=== PATIENT | male | born 1955 | race African-American/Black ===

== ENCOUNTER 2021-12-13 08:33 | Inpatient (IN) | payer OTHER ==
[2021-12-13] MEDS ORDERED: ACETAMINOPHEN 1000 MG/100 ML BAG IVPB ONE (09:09)
[2021-12-13] MEDS ORDERED: SODIUM CHLORIDE 0.9% 500 ML INFUS.BAG IV ONE (09:09)
[2021-12-13] MEDS ORDERED: ONDANSETRON 4 MG/2 ML VIAL IVPUSH ONE ×2 (09:09→12:14)
[2021-12-13] MEDS ORDERED: PANTOPRAZOLE SODIUM 40 MG VIAL IVPUSH ONE (09:15)
[2021-12-13] MEDS ORDERED: ACETAMINOPHEN INJECTION 100 ML IVPB ONE (09:18)
[2021-12-13] MEDS ORDERED: ONDANSETRON 4 MG/2 ML VIAL ONE ×3 (09:19→19:28)
[2021-12-13] MEDS ORDERED: PANTOPRAZOLE SODIUM 40 MG VIAL ONE (09:19)
[2021-12-13 09:44] LABS: BASO % 0.4 % (0-2.0); EOS % 0.5 % (0-4.5); HEMOGLOBIN 11.3 GM/dL (11.7-16.9); LYMPH % 15.9 % (8-40); MCH 32.7 pg (25.7-33.7); MCHC 34.1 g/dl (32.0-35.9); MEAN CELL VOLUME 95.8 fl (80-96); MEAN PLT VOLUME 8.7 fl (7.5-11.1); MONO % 13.5 % (3.8-10.2); NEUT % 69.7 % (42.8-82.8); PLATELET COUNT 96 10^3/uL (134-434); RBC 3.45 M/mm3 (4.00-5.60); RDW 17.6 % (11.9-15.9); WHITE BLOOD COUNT 4.6 K/mm3 (4.0-10.0)
[2021-12-13 09:53] LABS: EPI CELLS 2 /uL (0-25.1); HYALINE CASTS 0 /uL (0-3.1); URINE APPEARANCE CLEAR; URINE BACTERIA 4 /uL (0-1359); URINE BILIRUBIN NEGATIVE (NEGATIVE); URINE COLOR YELLOW; URINE GLUCOSE (UA) NEGATIVE (NEGATIVE); URINE KETONE NEGATIVE (NEGATIVE); URINE LEUK ESTERASE NEGATIVE (NEGATIVE); URINE NITRITE NEGATIVE (NEGATIVE); URINE PROTEIN NEGATIVE (NEGATIVE); URINE RBC 104 /uL (0-23.9); URINE WBC 1 /uL (0-25.8)
[2021-12-13 09:55] LABS: VENOUS O2 SATURATION 67.1 % (70-80); VENOUS PCO2 46.4 mmHg (38-52); VENOUS PH 7.348 (7.310-7.410)
[2021-12-13 10:23] LABS: ALBUMIN 1.5 g/dl (3.4-5.0); MAGNESIUM 1.9 mg/dL (1.8-2.4)
[2021-12-13 10:24] LABS: BLOOD UREA NITROGEN 9.5 mg/dL (7-18)
[2021-12-13 10:26] LABS: CREATININE 1.1 mg/dL (0.55-1.3)
[2021-12-13 10:28] LABS: BILIRUBIN,TOTAL 1.3 mg/dL (0.2-1); TOT PROT 9.4 g/dl (6.4-8.2)
[2021-12-13 10:31] LABS: N-TERMINAL BNP 244.4 pg/ml (5-125)
[2021-12-13 11:20] LABS: INR 1.74 (0.83-1.09); PROTHROMBIN TIME (PATIENT) 20.1 SEC (9.7-13.0)
[2021-12-13] MEDS ORDERED: CEFTRIAXONE 1,000 MG in DEXTROSE 5%-WATER - 50 ML IVPB ONE (11:52)
[2021-12-13] MEDS ORDERED: CEFTRIAXONE 1 GM/50 ML BAG ONE (12:04)
[2021-12-13] MEDS ORDERED: amLODIPine BESYLATE 10 MG TABLET (FP) ONE (13:50)
[2021-12-13] MEDS: amLODIPine BESYLATE 10 MG TABLET (FP) PO SCH (13:53)
[2021-12-13] MEDS: SODIUM CHLORIDE 1,000 ML IV SCH (14:13)
[2021-12-13] MEDS ORDERED: morphine SULFATE 4 MG/ML VIAL IVPUSH ONE (17:02)
[2021-12-13] MEDS ORDERED: morphine SULFATE 4 MG/ML VIAL ONE (17:07)
[2021-12-13] MEDS: ONDANSETRON 4 MG/2 ML VIAL IVPUSH PRN (19:33)
[2021-12-14 05:23] VITALS: BMI 22.6
[2021-12-14] MEDS ORDERED: DEXTROSE 5%-WATER - 50 ML IVPB ONE (09:02)
[2021-12-14] MEDS ORDERED: cefTRIAXone SODIUM 1 GM VIAL ONE (09:02)
[2021-12-14] MEDS: amLODIPine BESYLATE 10 MG TABLET (FP) PO SCH (09:06)
[2021-12-14] MEDS: CEFTRIAXONE 1 GM in DEXTROSE 5%-WATER - 50 ML IVPB SCH (09:06)
[2021-12-14] MEDS: ONDANSETRON 4 MG/2 ML VIAL IVPUSH PRN (09:43)
[2021-12-14 11:32] LABS: BASO % 0.9 % (0-2.0); EOS % 0.5 % (0-4.5); HEMOGLOBIN 12.2 GM/dL (11.7-16.9); LYMPH % 17.3 % (8-40); MCH 32.5 pg (25.7-33.7); MEAN CELL VOLUME 95.7 fl (80-96); MEAN PLT VOLUME 9.8 fl (7.5-11.1); MONO % 8.4 % (3.8-10.2); NEUT % 72.9 % (42.8-82.8); PLATELET COUNT 112 10^3/uL (134-434); RBC 3.76 M/mm3 (4.00-5.60); RDW 17.4 % (11.9-15.9); WHITE BLOOD COUNT 5.6 K/mm3 (4.0-10.0)
[2021-12-14] MEDS ORDERED: oxyCODONE HCL 5 MG TABLET PO PRN (11:49)
[2021-12-14 12:02] LABS: MAGNESIUM 1.9 mg/dL (1.8-2.4)
[2021-12-14 12:06] LABS: PHOSPHOROUS 3.1 mg/dL (2.5-4.9)
[2021-12-14] MEDS: oxyCODONE HCL 5 MG TABLET PO PRN ×2 (12:13→23:20)
[2021-12-14] MEDS: SODIUM CHLORIDE 1,000 ML IV SCH (14:05)
[2021-12-14] MEDS: morphine SULFATE 4 MG/ML VIAL IVPUSH PRN ×2 (16:30→20:29)
[2021-12-15] MEDS: morphine SULFATE 4 MG/ML VIAL IVPUSH PRN ×6 (01:18→21:12)
[2021-12-15] MEDS ORDERED: cefTRIAXone SODIUM 1 GM VIAL ONE (08:43)
[2021-12-15] MEDS ORDERED: DEXTROSE 5%-WATER - 50 ML IVPB ONE (08:44)
[2021-12-15 08:49] LABS: BASO % 0.3 % (0-2.0); EOS % 1.1 % (0-4.5); HEMATOCRIT 33.1 % (35.4-49); HEMOGLOBIN 11.4 GM/dL (11.7-16.9); MCH 33.1 pg (25.7-33.7); MCHC 34.6 g/dl (32.0-35.9); MEAN CELL VOLUME 95.5 fl (80-96); MEAN PLT VOLUME 8.8 fl (7.5-11.1); MONO % 13.2 % (3.8-10.2); NEUT % 65.4 % (42.8-82.8); PLATELET COUNT 113 10^3/uL (134-434); RBC 3.46 M/mm3 (4.00-5.60); RDW 17.3 % (11.9-15.9); WHITE BLOOD COUNT 6.1 K/mm3 (4.0-10.0)
[2021-12-15] MEDS: ENOXAPARIN NA (PORCINE) 40 MG/0.4 ML DISP.SYRIN SQ SCH (09:02)
[2021-12-15] MEDS: amLODIPine BESYLATE 10 MG TABLET (FP) PO SCH (09:02)
[2021-12-15] MEDS: CEFTRIAXONE 1 GM in DEXTROSE 5%-WATER - 50 ML IVPB SCH (09:02)
[2021-12-15 09:33] LABS: BLOOD UREA NITROGEN 13.7 mg/dL (7-18); CALCIUM 7.7 mg/dL (8.5-10.1); MAGNESIUM 1.9 mg/dL (1.8-2.4)
[2021-12-15 09:36] LABS: CREATININE 0.9 mg/dL (0.55-1.3)
[2021-12-15 09:37] LABS: PHOSPHOROUS 2.4 mg/dL (2.5-4.9)
[2021-12-15] MEDS: SODIUM CHLORIDE 1,000 ML IV SCH (13:15)
[2021-12-15 18:07] LABS: FREE KAPPA,SERUM 184.6 mg/L (3.3-19.4)
[2021-12-16] MEDS: morphine SULFATE 4 MG/ML VIAL IVPUSH PRN ×6 (01:19→22:20)
[2021-12-16] MEDS ORDERED: cefTRIAXone SODIUM 1 GM VIAL ONE (09:16)
[2021-12-16] MEDS: ENOXAPARIN NA (PORCINE) 40 MG/0.4 ML DISP.SYRIN SQ SCH (09:24)
[2021-12-16] MEDS: amLODIPine BESYLATE 10 MG TABLET (FP) PO SCH (09:26)
[2021-12-16] MEDS: CEFTRIAXONE 1 GM in DEXTROSE 5%-WATER - 50 ML IVPB SCH (09:27)
[2021-12-16] MEDS: SODIUM CHLORIDE 1,000 ML IV SCH ×2 (09:28→14:46)
[2021-12-16] MEDS ORDERED: ACETAMINOPHEN 325 MG TABLET (FP) PO PRN (13:32)
[2021-12-17] MEDS: SODIUM CHLORIDE 1,000 ML IV SCH ×2 (01:30→14:02)
[2021-12-17] MEDS: morphine SULFATE 4 MG/ML VIAL IVPUSH PRN ×5 (05:10→22:01)
[2021-12-17] MEDS ORDERED: DEXTROSE 5%-WATER - 50 ML IVPB ONE (09:15)
[2021-12-17] MEDS ORDERED: cefTRIAXone SODIUM 1 GM VIAL ONE (09:15)
[2021-12-17] MEDS: CEFTRIAXONE 1 GM in DEXTROSE 5%-WATER - 50 ML IVPB SCH (09:25)
[2021-12-17] MEDS: ENOXAPARIN NA (PORCINE) 40 MG/0.4 ML DISP.SYRIN SQ SCH (09:29)
[2021-12-17] MEDS: amLODIPine BESYLATE 10 MG TABLET (FP) PO SCH (09:53)
[2021-12-17 11:03] LABS: MCH 32.5 pg (25.7-33.7); MCHC 33.4 g/dl (32.0-35.9); MEAN CELL VOLUME 97.3 fl (80-96); MEAN PLT VOLUME 9.1 fl (7.5-11.1); PLATELET COUNT 129 10^3/uL (134-434); RDW 17.6 % (11.9-15.9)
[2021-12-17 11:06] LABS: WHITE BLOOD COUNT 6.8 K/mm3 (4.0-10.0)
[2021-12-17 11:29] LABS: BLOOD UREA NITROGEN 13.9 mg/dL (7-18); CALCIUM 7.7 mg/dL (8.5-10.1)
[2021-12-17 11:30] LABS: ALBUMIN 1.2 g/dl (3.4-5.0); MAGNESIUM 1.9 mg/dL (1.8-2.4)
[2021-12-17 11:32] LABS: BILIRUBIN,DIRECT 0.5 mg/dL (0.0-0.2); CREATININE 1.1 mg/dL (0.55-1.3)
[2021-12-17 11:33] LABS: PHOSPHOROUS 1.6 mg/dL (2.5-4.9)
[2021-12-17 11:34] LABS: BILIRUBIN,TOTAL 0.9 mg/dL (0.2-1); TOT PROT 8.1 g/dl (6.4-8.2)
[2021-12-17 12:11] LABS: ANISOCYTOSIS 1+; MACROCYTOSIS 0; PLATELET ESTIMATE DECREASED
[2021-12-17] MEDS: oxyCODONE HCL 5 MG TABLET PO PRN (15:59)
[2021-12-17] MEDS: NAPH,MB-DB/K PH,MBDB POWDER PACKET PO SCH (17:02)
[2021-12-18] MEDS: SODIUM CHLORIDE 1,000 ML IV SCH (01:41)
[2021-12-18] MEDS: morphine SULFATE 4 MG/ML VIAL IVPUSH PRN ×4 (03:07→23:06)
[2021-12-18] MEDS ORDERED: DEXTROSE 5%-WATER - 50 ML IVPB ONE (09:21)
[2021-12-18] MEDS ORDERED: cefTRIAXone SODIUM 1 GM VIAL ONE (09:21)
[2021-12-18] MEDS: NAPH,MB-DB/K PH,MBDB POWDER PACKET PO SCH (09:33)
[2021-12-18] MEDS: CEFTRIAXONE 1 GM in DEXTROSE 5%-WATER - 50 ML IVPB SCH (09:33)
[2021-12-18] MEDS: ENOXAPARIN NA (PORCINE) 40 MG/0.4 ML DISP.SYRIN SQ SCH (09:33)
[2021-12-18] MEDS: amLODIPine BESYLATE 10 MG TABLET (FP) PO SCH (09:33)
[2021-12-18] MEDS ORDERED: SPIRONOLACTONE 25 MG TABLET PO SCH (11:30)
[2021-12-18] MEDS: oxyCODONE HCL 5 MG TABLET PO PRN (17:36)
[2021-12-19] MEDS ORDERED: DEXTROSE 5%-WATER - 50 ML IVPB ONE (09:24)
[2021-12-19] MEDS ORDERED: cefTRIAXone SODIUM 1 GM VIAL ONE (09:24)
[2021-12-19] MEDS: NAPH,MB-DB/K PH,MBDB POWDER PACKET PO SCH (09:32)
[2021-12-19] MEDS: amLODIPine BESYLATE 10 MG TABLET (FP) PO SCH (09:32)
[2021-12-19] MEDS: ENOXAPARIN NA (PORCINE) 40 MG/0.4 ML DISP.SYRIN SQ SCH (09:33)
[2021-12-19] MEDS: CEFTRIAXONE 1 GM in DEXTROSE 5%-WATER - 50 ML IVPB SCH (09:33)
[2021-12-19] MEDS: morphine SULFATE 4 MG/ML VIAL IVPUSH PRN ×4 (10:03→22:21)
[2021-12-20] MEDS: morphine SULFATE 4 MG/ML VIAL IVPUSH PRN ×4 (03:36→22:18)
[2021-12-20] MEDS ORDERED: DEXTROSE 5%-WATER - 50 ML IVPB ONE (09:42)
[2021-12-20] MEDS ORDERED: cefTRIAXone SODIUM 1 GM VIAL ONE (09:42)
[2021-12-20] MEDS: NAPH,MB-DB/K PH,MBDB POWDER PACKET PO SCH (10:02)
[2021-12-20] MEDS: CEFTRIAXONE 1 GM in DEXTROSE 5%-WATER - 50 ML IVPB SCH (10:02)
[2021-12-20] MEDS: amLODIPine BESYLATE 10 MG TABLET (FP) PO SCH (10:02)
[2021-12-20 13:34] LABS: BASO % 0.9 % (0-2.0); EOS % 5.2 % (0-4.5); HEMATOCRIT 34.4 % (35.4-49); HEMOGLOBIN 11.4 GM/dL (11.7-16.9); LYMPH % 25.5 % (8-40); MCH 32.7 pg (25.7-33.7); MCHC 33.2 g/dl (32.0-35.9); MEAN CELL VOLUME 98.5 fl (80-96); MEAN PLT VOLUME 9.5 fl (7.5-11.1); MONO % 14.3 % (3.8-10.2); NEUT % 54.1 % (42.8-82.8); PLATELET COUNT 114 10^3/uL (134-434); RBC 3.49 M/mm3 (4.00-5.60); RDW 18.3 % (11.9-15.9); WHITE BLOOD COUNT 5.1 K/mm3 (4.0-10.0)
[2021-12-20 13:51] LABS: ALBUMIN 1.5 g/dl (3.4-5.0)
[2021-12-20 13:54] LABS: BILIRUBIN,DIRECT 0.6 mg/dL (0.0-0.2); PHOSPHOROUS 2.5 mg/dL (2.5-4.9)
[2021-12-20 13:56] LABS: TOT PROT 9.2 g/dl (6.4-8.2)
[2021-12-20 15:39] LABS: INR 2.14 (0.83-1.09); PROTHROMBIN TIME (PATIENT) 24.8 SEC (9.7-13.0)
[2021-12-20 15:43] LABS: BF WBC & OTHER NUCLEATED CELLS 77 /mm3
[2021-12-20 17:37] LABS: BODY FLUID MONOCYTE 24 %
[2021-12-21] MEDS: morphine SULFATE 4 MG/ML VIAL IVPUSH PRN ×3 (04:10→20:30)
[2021-12-21] MEDS ORDERED: cefTRIAXone SODIUM 1 GM VIAL ONE (09:39)
[2021-12-21] MEDS ORDERED: DEXTROSE 5%-WATER - 50 ML IVPB ONE (09:39)
[2021-12-21] MEDS: CEFTRIAXONE 1 GM in DEXTROSE 5%-WATER - 50 ML IVPB SCH (09:42)
[2021-12-21] MEDS: ENOXAPARIN NA (PORCINE) 40 MG/0.4 ML DISP.SYRIN SQ SCH (09:44)
[2021-12-21] MEDS: NAPH,MB-DB/K PH,MBDB POWDER PACKET PO SCH (09:44)
[2021-12-21] MEDS: amLODIPine BESYLATE 10 MG TABLET (FP) PO SCH (09:44)
[2021-12-21 10:47] LABS: INR 2.01 (0.83-1.09); PROTHROMBIN TIME (PATIENT) 23.3 SEC (9.7-13.0)
[2021-12-21 11:01] LABS: BASO % 0.7 % (0-2.0); EOS % 5.5 % (0-4.5); HEMATOCRIT 31.2 % (35.4-49); HEMOGLOBIN 10.6 GM/dL (11.7-16.9); LYMPH % 30.5 % (8-40); MCH 33.2 pg (25.7-33.7); MCHC 33.8 g/dl (32.0-35.9); MEAN CELL VOLUME 98.1 fl (80-96); MEAN PLT VOLUME 9.2 fl (7.5-11.1); MONO % 12.8 % (3.8-10.2); NEUT % 50.5 % (42.8-82.8); PLATELET COUNT 126 10^3/uL (134-434); RBC 3.18 M/mm3 (4.00-5.60); RDW 18.3 % (11.9-15.9); WHITE BLOOD COUNT 5.4 K/mm3 (4.0-10.0)
[2021-12-21 11:11] LABS: CALCIUM 7.9 mg/dL (8.5-10.1)
[2021-12-21 11:12] LABS: ALBUMIN 1.3 g/dl (3.4-5.0); BLOOD UREA NITROGEN 13.4 mg/dL (7-18)
[2021-12-21 11:15] LABS: CREATININE 1.2 mg/dL (0.55-1.3)
[2021-12-21 11:16] LABS: TOT PROT 8.4 g/dl (6.4-8.2)
[2021-12-21] MEDS ORDERED: FUROSEMIDE 40 MG/4 ML INJECTABLE VIAL IVPUSH ONE (14:15)
[2021-12-21] MEDS: SPIRONOLACTONE 25 MG TABLET PO SCH (22:21)
[2021-12-22] MEDS: morphine SULFATE 4 MG/ML VIAL IVPUSH PRN ×2 (01:30→09:04)
[2021-12-22 08:52] LABS: HEMATOCRIT 33.3 % (35.4-49); HEMOGLOBIN 11.3 GM/dL (11.7-16.9); MCH 33.3 pg (25.7-33.7); MEAN CELL VOLUME 98.1 fl (80-96); MEAN PLT VOLUME 9.1 fl (7.5-11.1); PLATELET COUNT 122 10^3/uL (134-434); RDW 18.4 % (11.9-15.9)
[2021-12-22] MEDS ORDERED: cefTRIAXone SODIUM 1 GM VIAL ONE (08:56)
[2021-12-22] MEDS ORDERED: DEXTROSE 5%-WATER - 50 ML IVPB ONE (08:56)
[2021-12-22 08:57] LABS: WHITE BLOOD COUNT 10.7 K/mm3 (4.0-10.0)
[2021-12-22] MEDS: CEFTRIAXONE 1 GM in DEXTROSE 5%-WATER - 50 ML IVPB SCH (09:03)
[2021-12-22] MEDS: ENOXAPARIN NA (PORCINE) 40 MG/0.4 ML DISP.SYRIN SQ SCH (09:03)
[2021-12-22] MEDS: SPIRONOLACTONE 25 MG TABLET PO SCH (09:04)
[2021-12-22] MEDS: amLODIPine BESYLATE 10 MG TABLET (FP) PO SCH (09:04)
[2021-12-22 09:15] LABS: CALCIUM 8.4 mg/dL (8.5-10.1)
[2021-12-22 09:16] LABS: ALBUMIN 1.5 g/dl (3.4-5.0); BLOOD UREA NITROGEN 12.2 mg/dL (7-18)
[2021-12-22 09:19] LABS: CREATININE 1.1 mg/dL (0.55-1.3)
[2021-12-22 09:20] LABS: TOT PROT 9.5 g/dl (6.4-8.2)
[2021-12-22 11:36] LABS: ANISOCYTOSIS 1+; MACROCYTOSIS 1+; PLATELET ESTIMATE DECREASED
[2021-12-22 15:21] VITALS: BP 138/86; PULSE 128; TEMP 98.2
== END 2021-12-22 17:26 | disposition left against medical advice (07) | DRG 391 ==
LOC: JER 08:33 → UNDOADMOB 11:58 → JERBED 11:58 → INTOOBSV 11:58 → JERBED 13:14 → J6S 20:57 → JERBED 20:57 → OBSVTOIN 12-15 12:19
PROVIDERS: ADMIT Internal Medicine; ATTEND Internal Medicine
PROC: 0W9G3ZX Drainage of Peritoneal Cavity, Percutaneous Approach, Diagnostic (ICD-10-PCS; principal; 2021-12-20)
PROC: BW40ZZZ Ultrasonography of Abdomen (ICD-10-PCS; 2021-12-20)
DX: K57.32 Diverticulitis of large intestine without perforation or abscess without bleeding (principal); K65.9 Peritonitis, unspecified; R18.8 Other ascites; J90 Pleural effusion, not elsewhere classified; B17.10 Acute hepatitis C without hepatic coma; N13.2 Hydronephrosis with renal and ureteral calculous obstruction; I10 Essential (primary) hypertension; K21.9 Gastro-esophageal reflux disease without esophagitis; R11.2 Nausea with vomiting, unspecified; R74.01 Elevation of levels of liver transaminase levels; K74.60 Unspecified cirrhosis of liver; E87.6 Hypokalemia; I27.20 Pulmonary hypertension, unspecified; R16.2 Hepatomegaly with splenomegaly, not elsewhere classified; E83.52 Hypercalcemia; R09.02 Hypoxemia; R00.0 Tachycardia, unspecified; Z86.19 Personal history of other infectious and parasitic diseases
CPT/HCPCS: 0241U-QW; 36415; 71045-TC-FY; 71275-TC; 74176-TC; 74178-TC; 76705-TC; 76775-TC; 76942-TC; 80048; 80053; 80076; 81003; 82042; 82105; 82150; 82465; 82803; 82945; 83605; 83615; 83690; 83735; 83880; 83883; 83986; 84100; 84155; 84157; 84165; 84439; 84443; 84478; 84481; 84484; 85025; 85027; 85610; 85730; 86705; 86708; 86803; 86850; 86900; 86901; 87070; 87075; 87086; 87102; 87116; 87205; 87206; 87210; 87340; 87517; 87522; 88108; 88305-TC; 93005; 93010; 94010; 94761; 97162-GP; 99285-25; G0378; Q9967

== ENCOUNTER 2021-12-28 14:38 | Inpatient (IN) | payer OTHER ==
[2021-12-28] MEDS ORDERED: dilTIAZem HCL 50 MG/10 ML - 10 ML VIAL IVPUSH ONE ×2 (16:10→21:36)
[2021-12-28] MEDS ORDERED: PIPERACILLIN/TAZOB 3.375 GM 3.375 GM in DEXTROSE 5%-WATER - 50 ML IVPB ONE (16:11)
[2021-12-28] MEDS ORDERED: VANCOMYCIN 1,000 MG in DEXTROSE 5%-WATER - 250 ML IVPB ONE (16:11)
[2021-12-28] MEDS ORDERED: dilTIAZem HCL 125 MG/25 ML - 25 ML VIAL ONE ×2 (16:11→21:37)
[2021-12-28 16:32] LABS: VENOUS BASE EXCESS 5.2 mmol/L (-2-2); VENOUS O2 SATURATION 58.7 % (70-80); VENOUS PCO2 48.1 mmHg (38-52); VENOUS PH 7.42 (7.310-7.410)
[2021-12-28 16:40] LABS: BASO % 0.8 % (0-2.0); HEMATOCRIT 28.4 % (35.4-49); HEMOGLOBIN 9.7 GM/dL (11.7-16.9); LYMPH % 25.6 % (8-40); MCH 34.2 pg (25.7-33.7); MCHC 34.2 g/dl (32.0-35.9); MEAN PLT VOLUME 10.7 fl (7.5-11.1); MONO % 18.3 % (3.8-10.2); NEUT % 50.3 % (42.8-82.8); PLATELET COUNT 145 10^3/uL (134-434); RBC 2.84 M/mm3 (4.00-5.60); RDW 18.5 % (11.9-15.9); WHITE BLOOD COUNT 4.4 K/mm3 (4.0-10.0)
[2021-12-28 16:49] LABS: INR 1.9 (0.83-1.09)
[2021-12-28 16:52] LABS: ACTIVATED PTT 39.3 SECONDS (25.2-36.5)
[2021-12-28 16:54] LABS: CHLORIDE 108 mmol/L (98-107); SODIUM 136 mmol/L (136-145)
[2021-12-28 16:56] LABS: ALBUMIN 1.2 g/dl (3.4-5.0); BLOOD UREA NITROGEN 13.3 mg/dL (7-18); CALCIUM 7.9 mg/dL (8.5-10.1); CO2 30 mmol/L (21-32)
[2021-12-28 16:57] LABS: GLUCOSE,RANDOM 127 mg/dL (74-106)
[2021-12-28 17:00] LABS: CREATININE 1.3 mg/dL (0.55-1.3)
[2021-12-28 17:01] LABS: BILIRUBIN,TOTAL 0.9 mg/dL (0.2-1); TOT PROT 9.3 g/dl (6.4-8.2)
[2021-12-28 17:02] LABS: ALK PHOS 75 U/L (45-117)
[2021-12-28 17:04] LABS: ANION GAP -2 MMOL/L (8-16); SGOT/AST 181 U/L (15-37); SGPT/ALT 38 U/L (13-61)
[2021-12-28] MEDS ORDERED: SODIUM CHLORIDE 0.9% 500 ML INFUS.BAG IV ONE (17:09)
[2021-12-28] MEDS ORDERED: LACTULOSE 20 GM/30 ML UDC (FOR ORAL USE ONLY) PO ONE (17:14)
[2021-12-28] MEDS ORDERED: PIPERACILLIN/TAZOB 3.375 GM 3.375 GM/50 ML BAG IVPB ONE (17:23)
[2021-12-28] MEDS ORDERED: LACTULOSE 20 GM/30 ML UDC (FOR ORAL USE ONLY) ONE (17:23)
[2021-12-28 19:23] LABS: EPI CELLS 4 /uL (0-25.1); HYALINE CASTS 0 /uL (0-3.1); PH,URINE 7.5 (5.0-8.0); URINE APPEARANCE CLEAR; URINE BACTERIA 5 /uL (0-1359); URINE BILIRUBIN NEGATIVE (NEGATIVE); URINE COLOR YELLOW; URINE GLUCOSE (UA) NEGATIVE (NEGATIVE); URINE KETONE NEGATIVE (NEGATIVE); URINE LEUK ESTERASE NEGATIVE (NEGATIVE); URINE NITRITE NEGATIVE (NEGATIVE); URINE PROTEIN NEGATIVE (NEGATIVE); URINE RBC 1459 /uL (0-23.9); URINE WBC 14 /uL (0-25.8)
[2021-12-28 20:04] LABS: BLOOD UREA NITROGEN 12.1 mg/dL (7-18)
[2021-12-28 20:05] LABS: CALCIUM 7.9 mg/dL (8.5-10.1)
[2021-12-28 20:08] LABS: CREATININE 1.1 mg/dL (0.55-1.3)
[2021-12-28] MEDS ORDERED: METOPROLOL TARTRATE 5 MG/5 ML VIAL IVPUSH PRN (22:33)
[2021-12-29] MEDS ORDERED: SODIUM CHLORIDE 0.45% 1,000 ML IV SCH (02:30)
[2021-12-29 07:48] LABS: HEMATOCRIT 30.1 % (35.4-49); HEMOGLOBIN 10.2 GM/dL (11.7-16.9); MCH 33.6 pg (25.7-33.7); MCHC 33.8 g/dl (32.0-35.9); MEAN CELL VOLUME 99.4 fl (80-96); MEAN PLT VOLUME 9.9 fl (7.5-11.1); PLATELET COUNT 78 10^3/uL (134-434); RBC 3.03 M/mm3 (4.00-5.60); RDW 18.7 % (11.9-15.9)
[2021-12-29 08:15] LABS: CALCIUM 8.2 mg/dL (8.5-10.1)
[2021-12-29 08:16] LABS: ALBUMIN 1.4 g/dl (3.4-5.0); BLOOD UREA NITROGEN 11.7 mg/dL (7-18); MAGNESIUM 1.8 mg/dL (1.8-2.4)
[2021-12-29 08:19] LABS: CREATININE 1.1 mg/dL (0.55-1.3); PHOSPHOROUS 2.5 mg/dL (2.5-4.9)
[2021-12-29 08:21] LABS: TOT PROT 8.2 g/dl (6.4-8.2)
[2021-12-29] MEDS ORDERED: dilTIAZem HCL 60 MG TABLET ONE (08:47)
[2021-12-29] MEDS ORDERED: PANTOPRAZOLE SODIUM 40 MG/100 ML BAG IVPB ONE (08:47)
[2021-12-29] MEDS ORDERED: LACTULOSE 20 GM/30 ML UDC (FOR ORAL USE ONLY) ONE ×2 (08:47→15:37)
[2021-12-29] MEDS: LACTULOSE 20 GM/30 ML UDC (FOR ORAL USE ONLY) PO SCH ×3 (09:00→22:14)
[2021-12-29] MEDS: PANTOPRAZOLE SODIUM 40 MG VIAL IVPUSH SCH (09:00)
[2021-12-29] MEDS: dilTIAZem HCL 30 MG TABLET PO SCH ×3 (09:00→17:41)
[2021-12-29 09:44] LABS: WHITE BLOOD COUNT 4.9 K/mm3 (4.0-10.0)
[2021-12-29] MEDS ORDERED: APIXABAN 5 MG TABLET PO SCH (10:00)
[2021-12-29] MEDS ORDERED: FUROSEMIDE 20 MG TABLET (FP) ONE (11:28)
[2021-12-29] MEDS ORDERED: SPIRONOLACTONE 25 MG TABLET ONE (11:28)
[2021-12-29] MEDS: SPIRONOLACTONE 25 MG TABLET PO SCH ×2 (12:00→22:14)
[2021-12-29] MEDS: FUROSEMIDE 20 MG TABLET (FP) PO SCH (12:00)
[2021-12-30] MEDS: dilTIAZem HCL 30 MG TABLET PO SCH ×4 (03:18→17:45)
[2021-12-30] MEDS: LACTULOSE 20 GM/30 ML UDC (FOR ORAL USE ONLY) PO SCH ×3 (06:26→21:23)
[2021-12-30 09:26] LABS: HEMATOCRIT 31.2 % (35.4-49); HEMOGLOBIN 10.5 GM/dL (11.7-16.9); MCHC 33.7 g/dl (32.0-35.9); MEAN CELL VOLUME 100.7 fl (80-96); MEAN PLT VOLUME 9.8 fl (7.5-11.1); PLATELET COUNT 71 10^3/uL (134-434); RDW 19.6 % (11.9-15.9); WHITE BLOOD COUNT 6.3 K/mm3 (4.0-10.0)
[2021-12-30] MEDS: FUROSEMIDE 20 MG TABLET (FP) PO SCH (09:38)
[2021-12-30] MEDS: SPIRONOLACTONE 25 MG TABLET PO SCH ×2 (09:38→21:24)
[2021-12-30] MEDS: PANTOPRAZOLE SODIUM 40 MG VIAL IVPUSH SCH (09:38)
[2021-12-30 09:42] LABS: CALCIUM 8.2 mg/dL (8.5-10.1)
[2021-12-30 09:43] LABS: ALBUMIN 1.3 g/dl (3.4-5.0); BLOOD UREA NITROGEN 12.3 mg/dL (7-18); MAGNESIUM 2.1 mg/dL (1.8-2.4)
[2021-12-30 09:45] LABS: CREATININE 1.3 mg/dL (0.55-1.3)
[2021-12-30 09:47] LABS: BILIRUBIN,TOTAL 1.2 mg/dL (0.2-1); TOT PROT 8.4 g/dl (6.4-8.2)
[2021-12-30 21:20] LABS: BF WBC & OTHER NUCLEATED CELLS 154 /mm3
[2021-12-30 21:38] LABS: BODY FLUID MACROPHAGES 24 %
[2021-12-30 21:39] LABS: BODY FLUID MONOCYTE 51 %
[2021-12-31] MEDS: MELATONIN 5 MG TABLETS PO PRN (02:40)
[2021-12-31] MEDS: LACTULOSE 20 GM/30 ML UDC (FOR ORAL USE ONLY) PO SCH ×3 (05:39→22:17)
[2021-12-31] MEDS ORDERED: TRIMETHOBENZAMIDE HCL 300 MG CAPSULE PO PRN (07:06)
[2021-12-31] MEDS ORDERED: TRIMETHOBENZAMIDE HCL 200MG/2ML INJ IM PRN ×2 (07:25→12:36)
[2021-12-31] MEDS ORDERED: SODIUM CHLORIDE 0.45% 1,000 ML IV SCH (07:30)
[2021-12-31 08:38] LABS: BASO % 0.9 % (0-2.0); EOS % 2.4 % (0-4.5); HEMATOCRIT 32.8 % (35.4-49); LYMPH % 17.7 % (8-40); MCH 33.7 pg (25.7-33.7); MCHC 33.5 g/dl (32.0-35.9); MEAN CELL VOLUME 100.7 fl (80-96); MEAN PLT VOLUME 10.7 fl (7.5-11.1); MONO % 13.5 % (3.8-10.2); NEUT % 65.5 % (42.8-82.8); PLATELET COUNT 76 10^3/uL (134-434); RBC 3.26 M/mm3 (4.00-5.60); RDW 19.9 % (11.9-15.9)
[2021-12-31 09:00] LABS: ALBUMIN 1.5 g/dl (3.4-5.0); BLOOD UREA NITROGEN 13.8 mg/dL (7-18); CALCIUM 8.5 mg/dL (8.5-10.1); MAGNESIUM 2.1 mg/dL (1.8-2.4)
[2021-12-31 09:03] LABS: CREATININE 1.5 mg/dL (0.55-1.3); PHOSPHOROUS 2.2 mg/dL (2.5-4.9)
[2021-12-31 09:04] LABS: TOT PROT 9.3 g/dl (6.4-8.2)
[2021-12-31 09:06] LABS: BILIRUBIN,TOTAL 1.1 mg/dL (0.2-1)
[2021-12-31] MEDS: PANTOPRAZOLE SODIUM 40 MG VIAL IVPUSH SCH (09:35)
[2021-12-31] MEDS ORDERED: METOPROLOL TARTRATE 5 MG/5 ML VIAL IVPUSH ONE ×2 (10:00)
[2021-12-31] MEDS: SODIUM CHLORIDE 1,000 ML IV SCH (12:43)
[2022-01-01] MEDS: LACTULOSE 20 GM/30 ML UDC (FOR ORAL USE ONLY) PO SCH ×3 (05:29→21:47)
[2022-01-01 08:52] LABS: BASO % 0.6 % (0-2.0); HEMATOCRIT 30.2 % (35.4-49); HEMOGLOBIN 10.4 GM/dL (11.7-16.9); MCH 34.4 pg (25.7-33.7); MCHC 34.3 g/dl (32.0-35.9); MEAN CELL VOLUME 100.2 fl (80-96); MEAN PLT VOLUME 10.9 fl (7.5-11.1); MONO % 11.6 % (3.8-10.2); NEUT % 63.8 % (42.8-82.8); PLATELET COUNT 75 10^3/uL (134-434); RBC 3.02 M/mm3 (4.00-5.60); RDW 19.6 % (11.9-15.9)
[2022-01-01 09:00] LABS: WHITE BLOOD COUNT 8.5 K/mm3 (4.0-10.0)
[2022-01-01 09:10] LABS: CALCIUM 8.2 mg/dL (8.5-10.1)
[2022-01-01 09:11] LABS: BLOOD UREA NITROGEN 13.7 mg/dL (7-18)
[2022-01-01 09:14] LABS: CREATININE 1.3 mg/dL (0.55-1.3)
[2022-01-01] MEDS: PANTOPRAZOLE SODIUM 40 MG VIAL IVPUSH SCH (10:09)
[2022-01-01 11:41] LABS: HIV INTERPRETATION NEGATIVE (NEGATIVE)
[2022-01-01] MEDS: SODIUM CHLORIDE 1,000 ML IV SCH (16:16)
[2022-01-01] MEDS: MELATONIN 5 MG TABLETS PO PRN (21:48)
[2022-01-02] MEDS: LACTULOSE 20 GM/30 ML UDC (FOR ORAL USE ONLY) PO SCH ×3 (06:59→21:46)
[2022-01-02] MEDS: PANTOPRAZOLE SODIUM 40 MG VIAL IVPUSH SCH (09:40)
[2022-01-02 09:44] LABS: BASO % 0.6 % (0-2.0); EOS % 3.7 % (0-4.5); HEMATOCRIT 31.9 % (35.4-49); HEMOGLOBIN 10.6 GM/dL (11.7-16.9); LYMPH % 22.4 % (8-40); MCHC 33.3 g/dl (32.0-35.9); MEAN CELL VOLUME 102.1 fl (80-96); MEAN PLT VOLUME 10.7 fl (7.5-11.1); NEUT % 60.3 % (42.8-82.8); RBC 3.13 M/mm3 (4.00-5.60); WHITE BLOOD COUNT 6.2 K/mm3 (4.0-10.0)
[2022-01-02 10:26] LABS: ALBUMIN 1.4 g/dl (3.4-5.0); BLOOD UREA NITROGEN 13.3 mg/dL (7-18); CALCIUM 8.4 mg/dL (8.5-10.1)
[2022-01-02 10:28] LABS: CREATININE 1.3 mg/dL (0.55-1.3)
[2022-01-02 10:31] LABS: BILIRUBIN,TOTAL 1.4 mg/dL (0.2-1); TOT PROT 8.8 g/dl (6.4-8.2)
[2022-01-02 10:43] LABS: PLATELET COUNT 76 10^3/uL (134-434)
[2022-01-02 20:17] VITALS: BMI 25.1
[2022-01-02] MEDS: MELATONIN 5 MG TABLETS PO PRN (21:46)
[2022-01-03 00:06] LABS: BODY FLUID ALBUMIN 0.3 g/dL (Not Estab.)
[2022-01-03] MEDS: LACTULOSE 20 GM/30 ML UDC (FOR ORAL USE ONLY) PO SCH ×3 (06:19→21:33)
[2022-01-03] MEDS: PANTOPRAZOLE SODIUM 40 MG VIAL IVPUSH SCH (09:28)
[2022-01-03 11:02] LABS: CALCIUM 8.2 mg/dL (8.5-10.1)
[2022-01-03 11:03] LABS: BLOOD UREA NITROGEN 14.4 mg/dL (7-18)
[2022-01-03 11:06] LABS: CREATININE 1.6 mg/dL (0.55-1.3)
[2022-01-03] MEDS ORDERED: SODIUM CHLORIDE 1,000 ML IV SCH (17:30)
[2022-01-04] MEDS: LACTULOSE 20 GM/30 ML UDC (FOR ORAL USE ONLY) PO SCH ×3 (06:24→21:38)
[2022-01-04 09:21] LABS: HEMATOCRIT 31.1 % (35.4-49); HEMOGLOBIN 10.5 GM/dL (11.7-16.9); MCH 34.4 pg (25.7-33.7); MCHC 33.8 g/dl (32.0-35.9); MEAN CELL VOLUME 101.6 fl (80-96); MEAN PLT VOLUME 10.7 fl (7.5-11.1); PLATELET COUNT 75 10^3/uL (134-434); RBC 3.06 M/mm3 (4.00-5.60); RDW 19.8 % (11.9-15.9); WHITE BLOOD COUNT 5.4 K/mm3 (4.0-10.0)
[2022-01-04] MEDS: PANTOPRAZOLE SODIUM 40 MG VIAL IVPUSH SCH (09:57)
[2022-01-04 10:05] LABS: ALBUMIN 1.4 g/dl (3.4-5.0); BLOOD UREA NITROGEN 14.2 mg/dL (7-18); CALCIUM 8.4 mg/dL (8.5-10.1)
[2022-01-04 10:08] LABS: CREATININE 1.4 mg/dL (0.55-1.3)
[2022-01-04 10:09] LABS: BILIRUBIN,TOTAL 1.5 mg/dL (0.2-1); TOT PROT 9.2 g/dl (6.4-8.2)
[2022-01-04 16:49] LABS: MAGNESIUM 2.1 mg/dL (1.8-2.4)
[2022-01-04] MEDS ORDERED: LIDOCAINE 5% TOPICAL PATCH TP ONE (20:58)
[2022-01-04] MEDS: LIDOCAINE PATCH REMOVAL MC SCH (21:45)
[2022-01-05] MEDS: LACTULOSE 20 GM/30 ML UDC (FOR ORAL USE ONLY) PO SCH ×3 (05:37→21:30)
[2022-01-05 08:48] LABS: HEMATOCRIT 26.8 % (35.4-49); HEMOGLOBIN 9.2 GM/dL (11.7-16.9); MCH 34.9 pg (25.7-33.7); MCHC 34.1 g/dl (32.0-35.9); MEAN CELL VOLUME 102.2 fl (80-96); MEAN PLT VOLUME 10.7 fl (7.5-11.1); PLATELET COUNT 70 10^3/uL (134-434); RBC 2.62 M/mm3 (4.00-5.60); RDW 19.7 % (11.9-15.9); WHITE BLOOD COUNT 5.9 K/mm3 (4.0-10.0)
[2022-01-05 08:53] LABS: INR 1.68 (0.83-1.09); PROTHROMBIN TIME (PATIENT) 19.4 SEC (9.7-13.0)
[2022-01-05 08:56] LABS: ACTIVATED PTT 35.7 SECONDS (25.2-36.5)
[2022-01-05 10:17] LABS: ALBUMIN 1.2 g/dl (3.4-5.0); BLOOD UREA NITROGEN 13.3 mg/dL (7-18); CALCIUM 7.9 mg/dL (8.5-10.1)
[2022-01-05 10:20] LABS: CREATININE 1.4 mg/dL (0.55-1.3)
[2022-01-05 10:23] LABS: BILIRUBIN,TOTAL 1.8 mg/dL (0.2-1)
[2022-01-05] MEDS: PANTOPRAZOLE SODIUM 40 MG VIAL IVPUSH SCH (12:44)
[2022-01-05] MEDS ORDERED: LIDOCAINE HCL/PF 2% SDV 5ML VIAL ONE (14:38)
[2022-01-05] MEDS ORDERED: PROPOFOL 20 ML ONE (14:39)
[2022-01-05] MEDS ORDERED: MIDAZOLAM HCL 2 MG/2 ML SINGLE DOSE VIAL ONE (14:39)
[2022-01-05] MEDS ORDERED: FUROSEMIDE 40 MG/4 ML INJECTABLE VIAL IVPUSH ONE (18:39)
[2022-01-05] MEDS: LIDOCAINE PATCH REMOVAL MC SCH (21:31)
[2022-01-06] MEDS: LACTULOSE 20 GM/30 ML UDC (FOR ORAL USE ONLY) PO SCH ×3 (05:22→22:39)
[2022-01-06] MEDS ORDERED: morphine CARPU-JECT 2 MG/1 ML DISP.SYRIN IM ONE (08:41)
[2022-01-06 09:07] LABS: MAGNESIUM 1.9 mg/dL (1.8-2.4)
[2022-01-06 09:12] LABS: PHOSPHOROUS 3.1 mg/dL (2.5-4.9)
[2022-01-06 09:18] LABS: HEMATOCRIT 30.8 % (35.4-49); HEMOGLOBIN 10.4 GM/dL (11.7-16.9); MCH 34.6 pg (25.7-33.7); MCHC 33.7 g/dl (32.0-35.9); MEAN CELL VOLUME 102.6 fl (80-96); MEAN PLT VOLUME 10.3 fl (7.5-11.1); PLATELET COUNT 80 10^3/uL (134-434); RDW 19.3 % (11.9-15.9)
[2022-01-06 09:22] LABS: WHITE BLOOD COUNT 5.9 K/mm3 (4.0-10.0)
[2022-01-06 09:35] LABS: ALBUMIN 1.2 g/dl (3.4-5.0); BLOOD UREA NITROGEN 15.5 mg/dL (7-18)
[2022-01-06 09:36] LABS: CALCIUM 8.1 mg/dL (8.5-10.1)
[2022-01-06 09:37] LABS: MAGNESIUM 1.9 mg/dL (1.8-2.4)
[2022-01-06 09:38] LABS: CREATININE 1.2 mg/dL (0.55-1.3); PHOSPHOROUS 3.6 mg/dL (2.5-4.9)
[2022-01-06 09:40] LABS: BILIRUBIN,TOTAL 1.4 mg/dL (0.2-1); TOT PROT 8.6 g/dl (6.4-8.2)
[2022-01-06] MEDS: PANTOPRAZOLE SODIUM 40 MG VIAL IVPUSH SCH (09:45)
[2022-01-06] MEDS ORDERED: DEXAMETHASONE SOD PHOSPHATE 4 MG/1 ML VIAL ONE (13:06)
[2022-01-06] MEDS ORDERED: PROPOFOL 20 ML ONE ×2 (13:07→14:19)
[2022-01-06] MEDS ORDERED: SUCCINYLCHOLINE CHLORIDE 200 MG/10 ML SYRINGE ONE (14:19)
[2022-01-06] MEDS ORDERED: MIDAZOLAM HCL 2 MG/2 ML SINGLE DOSE VIAL ONE (14:19)
[2022-01-06] MEDS ORDERED: ceFAZolin SODIUM 1 GM VIAL IVPB ONE (14:40)
[2022-01-06] MEDS ORDERED: ceFAZolin SODIUM 1 GM VIAL ONE (14:45)
[2022-01-06] MEDS ORDERED: ONDANSETRON 4 MG/2 ML VIAL IVPUSH PRN (15:35)
[2022-01-06] MEDS ORDERED: LACTATED RINGERS SOLUTION 1,000 ML IV SCH (15:45)
[2022-01-06] MEDS ORDERED: MELATONIN 5 MG TABLETS PO PRN (15:48)
[2022-01-06] MEDS ORDERED: TRIMETHOBENZAMIDE HCL 200MG/2ML INJ IM PRN (15:48)
[2022-01-06 17:50] LABS: BF WBC & OTHER NUCLEATED CELLS 98 /mm3
[2022-01-06 18:49] LABS: BODY FLUID MONOCYTE 30 %
[2022-01-06 18:50] LABS: BODY FLUID MESOTHELIAL 2 %
[2022-01-06] MEDS: oxyCODONE HCL 5 MG TABLET PO PRN (19:00)
[2022-01-06 21:28] LABS: MAGNESIUM 2.1 mg/dL (1.8-2.4)
[2022-01-06 21:32] LABS: PHOSPHOROUS 4.2 mg/dL (2.5-4.9)
[2022-01-06] MEDS ORDERED: LIDOCAINE PATCH REMOVAL MC SCH (22:00)
[2022-01-07] MEDS: oxyCODONE HCL 5 MG TABLET PO PRN ×3 (01:53→18:35)
[2022-01-07] MEDS: LACTULOSE 20 GM/30 ML UDC (FOR ORAL USE ONLY) PO SCH ×2 (05:52→13:54)
[2022-01-07 08:34] LABS: HEMATOCRIT 33.5 % (35.4-49); HEMOGLOBIN 11.1 GM/dL (11.7-16.9); MCH 34.5 pg (25.7-33.7); MCHC 33.2 g/dl (32.0-35.9); MEAN CELL VOLUME 103.9 fl (80-96); MEAN PLT VOLUME 10.4 fl (7.5-11.1); PLATELET COUNT 88 10^3/uL (134-434); RBC 3.23 M/mm3 (4.00-5.60); RDW 20.2 % (11.9-15.9); WHITE BLOOD COUNT 10.3 K/mm3 (4.0-10.0)
[2022-01-07 08:59] LABS: BLOOD UREA NITROGEN 24.5 mg/dL (7-18); CALCIUM 8.1 mg/dL (8.5-10.1)
[2022-01-07 09:00] LABS: ALBUMIN 1.2 g/dl (3.4-5.0)
[2022-01-07 09:03] LABS: CREATININE 1.5 mg/dL (0.55-1.3)
[2022-01-07 09:04] LABS: BILIRUBIN,TOTAL 0.9 mg/dL (0.2-1); TOT PROT 8.8 g/dl (6.4-8.2)
[2022-01-07] MEDS ORDERED: PANTOPRAZOLE SODIUM 40 MG VIAL IVPUSH SCH (10:00)
[2022-01-07] MEDS ORDERED: FUROSEMIDE 40 MG TABLET (FP) PO SCH ×2 (10:00)
[2022-01-07 14:13] VITALS: BP 137/70; PULSE 84; TEMP 98.3
[2022-01-07 14:50] LABS: MAGNESIUM 2.1 mg/dL (1.8-2.4)
[2022-01-07 14:53] LABS: PHOSPHOROUS 4.4 mg/dL (2.5-4.9)
[2022-01-07] MEDS ORDERED: DOXYCYCLINE HYCLATE 100 MG CAPSULE PO ONE (16:41)
[2022-01-07] MEDS ORDERED: AMOX TR/POT CLAV 875MG/125MG TABLETS (FP) PO ONE (16:41)
[2022-01-11 18:08] LABS: BODY FLUID ALBUMIN 0.3 g/dL (Not Estab.)
== END 2022-01-07 19:40 | DRG 988 ==
LOC: JER 14:38 → JERBED 20:08 → J4W 12-29 16:25 → J4S 12-31 13:26
PROVIDERS: ADMIT Internal Medicine; ATTEND Internal Medicine
PROC: 0W9G3ZX Drainage of Peritoneal Cavity, Percutaneous Approach, Diagnostic (ICD-10-PCS; 2021-12-31)
PROC: 0W9G3ZZ Drainage of Peritoneal Cavity, Percutaneous Approach (ICD-10-PCS; 2021-12-31)
PROC: 0T768DZ Dilation of Right Ureter with Intraluminal Device, Via Natural or Artificial Opening Endoscopic (ICD-10-PCS; principal; 2022-01-06 14:30)
PROC: 0TC38ZZ Extirpation of Matter from Right Kidney Pelvis, Via Natural or Artificial Opening Endoscopic (ICD-10-PCS; 2022-01-06 14:30)
PROC: BT1DZZZ Fluoroscopy of Right Kidney, Ureter and Bladder (ICD-10-PCS; 2022-01-06 14:30)
DX: K72.90 Hepatic failure, unspecified without coma (principal); E87.0 Hyperosmolality and hypernatremia; R18.8 Other ascites; N17.9 Acute kidney failure, unspecified; I10 Essential (primary) hypertension; K74.60 Unspecified cirrhosis of liver; B19.20 Unspecified viral hepatitis C without hepatic coma; K21.9 Gastro-esophageal reflux disease without esophagitis; I48.91 Unspecified atrial fibrillation; D53.9 Nutritional anemia, unspecified; D69.6 Thrombocytopenia, unspecified; R82.71 Bacteriuria; R11.2 Nausea with vomiting, unspecified; R31.9 Hematuria, unspecified; N20.0 Calculus of kidney
CPT/HCPCS: 0241U-QW; 36415; 70450-TC; 71045-TC-FY; 74018-TC-FY; 74176-TC; 76000-TC-FY; 76942-TC; 80048; 80053; 81003; 82042; 82140; 82150; 82272; 82465; 82607; 82728; 82746; 82803; 82945; 82962; 83540; 83550; 83615; 83735; 83986; 84100; 84157; 84466; 84478; 84484; 85025; 85027; 85045; 85610; 85730; 87040; 87070; 87075; 87086; 87102; 87116; 87186; 87205; 87206; 87210; 87389; 87633; 88108; 88305-TC; 93005; 93010; 93970-TC; 94010; 94760; 97116-GP; 97161-GP; 99285-25; C9803-CS; U0003; U0005